=== PATIENT | male | born 1945 | race African-American/Black ===

== ENCOUNTER → 2016-08-06 | Day surgery (SDC) | payer MEDICARE ==
[~2016-08-06] VITALS: Ht 167.6 cm; Wt 91.9 kg
[~2016-08-06] MED LIST: *RESP: ALBUTEROL 2.5 MG/3 ML NEB (PRN) PERIprocedural Use ONLY NEB ONE; ACETAMINOPHEN 1000 MG/100 ML VIAL IV ONE; ALPR0.25 PO; ATOR40TA16 PO; BUPIVACAINE/EPINEPHRINE 0.25% 50 ML VIAL ONE; BUPIVACAINE/EPINEPHRINE 0.5% 50 ML VIAL ONE; CALC0.25 PO; CLOP75TA PO; FEXO180T PO; FLUT1SPR5 EACH NARE; FURO40TA PO; GUAN1TAB PO; HEPARIN SODIUM - IV 10,000 UNITS/10 ML VIAL ONE; HEPARIN SODIUM - SQ 10,000 UNITS/ML VIAL ONE; HYDROmorphone HCL PF 2 MG/ML VIAL ONE; INSULIN HUMAN REGULAR 1,000 UNITS/10 ML VIAL SQ PRN; KEPP10002 PO; LACTATED RINGER'S 1000 ML IV SCH; LISI40TA PO; MEMA1TAB2 PO; METO50TA PO; METOPROLOL TARTRATE 25 MG TAB PO PRN; NIFE30TA61 PO; NIFE60TA58 PO; OXCA150T PO; PRIL20CA9 PO; PROPOFOL 200 MG/20 ML AMP IV ONE; PROTAMINE SULFATE 50 MG/5 ML VIAL ONE; SODIUM CHLORID 0.9% 500 ML IV SCH; TAMS0.4C4 PO; VALP250C PO; ceFAZolin 1,000 MG/NS 100 ML IV SCH; fentaNYL CITRATE 250 MCG/5 ML AMP ONE
[2016-08-06 10:09] LABS: AUTOMATED NEUTROPHIL # 4.9 TH/MM3 (1.8-7.7); BASOPHIL % 0.5 % (0.0-2.0); EOSINOPHIL # 0.2 TH/MM3 (0-0.4); EOSINOPHIL % 2.2 % (0.0-4.0); HEMATOCRIT 33.7 % (39.0-51.0); HEMO FLAGS DIFF FINAL; LYMPH % 22.4 % (9.0-44.0); LYMPHOCYTE # 1.7 TH/MM3 (1.0-4.8); MEAN CORPUSCULAR HEMOGLOBIN 28.7 PG (27.0-34.0); MEAN CORPUSCULAR HGB CONC 33.8 % (32.0-36.0); MONO % 9.2 % (0.0-8.0); NEUT % 65.7 % (16.0-70.0); PLATELET COUNT 205 TH/MM3 (150-450); RED BLOOD COUNT 3.97 MIL/MM3 (4.50-5.90); RED CELL DISTRIBUTION WIDTH 14.6 % (11.6-17.2); WHITE BLOOD COUNT 7.4 TH/MM3 (4.0-11.0)
[2016-08-06 10:18] LABS: APTT (PATIENT) 27.2 SEC (24.3-30.1); PROTHROMBIN TIME - PATIENT 10.6 SEC (9.8-11.6)
[2016-08-06 10:25] VITALS: BP 180/75; PULSE 72; RESP 20; TEMP 98.3; O2SAT 100
[2016-08-06 10:27] LABS: BICARBONATE 26.9 MEQ/L (21.0-32.0); POTASSIUM 3.5 MEQ/L (3.5-5.1)
[2016-08-06 15:31] VITALS: BP 224/78; PULSE 66; RESP 16; TEMP 96.9; O2SAT 100
--- NOTE | 2016-08-07 20:21 | EKG ---
Date Performed: 08/06/2016 Time Performed: 09:40:25 PTAGE: 70 years EKG: Sinus rhythm MARKED LEFT AXIS DEVIATION LEFT VENTRICULAR HYPERTROPHY AND ST-T CHANGE ABNORMAL ECG NO PREVIOUS TRACING DOCTOR: Garett Means Interpretating Date/Time 08/07/2016 20:21:39
--- NOTE | 2016-08-11 18:24 | MP ---
cc: QUIN PERKINS DATE OF SURGERY 08/06/16 PREOPERATIVE DIAGNOSIS Chronic kidney disease - needs permanent hemodialysis access. POSTOPERATIVE DIAGNOSIS Chronic kidney disease - needs permanent hemodialysis access. PROCEDURE Left brachial basilic AV fistula creation. SURGEON Yumi Perkins MD ANESTHESIA Local MAC DESCRIPTION OF PROCEDURE With the patient in the supine position and under IV sedation, the left arm was prepped with Betadine and draped in a sterile fashion. One gram of Ancef was administered intravenously and, following a protocol time-out, the skin and subcutaneous tissue along the medial supra-antecubital region preemptively infiltrated with 0.5% Marcaine with epinephrine. A curvilinear incision was performed along the medial supra-antecubital region. The cephalic vein was found to be sclerotic, occluded throughout, not usable as a fistula conduit. The basilic vein appeared to be of adequate luminal patency in caliber. It was circumferentially mobilized as was the brachial artery and encircled with vessel loops. The vein was ligated distally with 4-0 silk, transected proximal to the ligature, spatulated on end, flushed with heparinized saline and occluded with a Yasargil clip. The brachial artery was occluded proximally and distally with Yasargil clip clips. A vertical 4-mm arteriotomy was performed along the anteromedial surface and the arterial lumen flushed proximally and distally with heparinized saline. An end-to-side anastomosis was performed between the vein and arteriotomy with continuous 7-0 Prolene. The occluding Yasargil clips were removed reestablishing pulsatile flow within the brachial artery as well as into the basilic vein. Strict hemostasis was assured along with normal perfusion within the left hand. The incision was closed with continuous subcutaneous 4-0 Monocryl, continuous subcuticular 5-0 Monocryl, reinforced with Steri-Strips and covered with sterile gauze. Instrument, needle, sponge count correct x2. No operative complications. The patient returned to the recovery room in stable condition having tolerated procedure well. Quin Perkins MD JTS/ /8:52 AM /5:15 PM
== END | disposition home or self-care (01) ==
LOC: HSDC 08:55
PROVIDERS: ATTEND Surgery Vascular Surgery
DX: N18.6 End stage renal disease (principal); I12.0 Hypertensive chronic kidney disease with stage 5 chronic kidney disease or end stage renal disease; E11.22 Type 2 diabetes mellitus with diabetic chronic kidney disease; Z99.2 Dependence on renal dialysis
CPT/HCPCS: 01844; 36819; 80048; 82948; 85025; 85610; 85730; 93005; 94664; J0131; J0690; J1644; J7040; J7613; J1170; J2720; J3010; J7120

== ENCOUNTER 2016-12-18 09:06 | Day surgery (SDC) | payer MEDICARE ==
[~2016-12-18 09:06] MED LIST changes: -*RESP: ALBUTEROL 2.5 MG/3 ML NEB (PRN) PERIprocedural Use ONLY NEB ONE; -ACETAMINOPHEN 1000 MG/100 ML VIAL IV ONE; -BUPIVACAINE/EPINEPHRINE 0.25% 50 ML VIAL ONE; -BUPIVACAINE/EPINEPHRINE 0.5% 50 ML VIAL ONE; -HEPARIN SODIUM - IV 10,000 UNITS/10 ML VIAL ONE; -HEPARIN SODIUM - SQ 10,000 UNITS/ML VIAL ONE; -HYDROmorphone HCL PF 2 MG/ML VIAL ONE; -INSULIN HUMAN REGULAR 1,000 UNITS/10 ML VIAL SQ PRN; -LACTATED RINGER'S 1000 ML IV SCH; -METOPROLOL TARTRATE 25 MG TAB PO PRN; -PROPOFOL 200 MG/20 ML AMP IV ONE; -PROTAMINE SULFATE 50 MG/5 ML VIAL ONE; -SODIUM CHLORID 0.9% 500 ML IV SCH; -ceFAZolin 1,000 MG/NS 100 ML IV SCH; -fentaNYL CITRATE 250 MCG/5 ML AMP ONE
[2016-12-18] MEDS ORDERED: POVIDONE IODINE 5% (ANTISEPSIS KIT) 4 APPLICATIONS EACH NARE SCH (09:30)
[2016-12-18] MEDS ORDERED: MUPIROCIN 2% OINT 1 APPLIC/GM SYR NASAL SCH (09:30)
[2016-12-18] MEDS ORDERED: CHLORHEXIDINE GLUCONATE 2 % 1 PACK (2 CLOTHS) TOPICAL SCH (09:30)
[2016-12-18] MEDS ORDERED: ceFAZolin 2 GM PREMIX 50 ML IV SCH (09:30)
[2016-12-18] MEDS ORDERED: NO Heparin, Lovenox, Coumadin at least 12 hours prior to procedure. PRN (09:30)
[2016-12-18] MEDS ORDERED: OMEP20TA PO (09:52)
[2016-12-18] MEDS ORDERED: ARICEPT PO (09:52)
[2016-12-18] MEDS ORDERED: LACO50 PO (09:52)
[2016-12-18] MEDS ORDERED: LORA-373 PO (09:52)
[2016-12-18] MEDS ORDERED: DEPA500T3 PO (09:52)
[2016-12-18] MEDS ORDERED: CHOL5000 PO (09:52)
[2016-12-18] MEDS ORDERED: HYDR-3801 PO (09:52)
[2016-12-18] MEDS ORDERED: NS 1000 ML IV SCH (10:00)
--- NOTE | 2016-12-18 12:12 | MR ---
cc: ANA MARIA HOOKER MD DATE: 12/18/2016 PROCEDURES PERFORMED Loop recorder insertion. INDICATIONS FOR PROCEDURE CVA DESCRIPTION OF PROCEDURE After informed consent was obtained, the patient was prepped and draped in usual sterile fashion. Using the standard sterile technique a [employer] loop recorder was inserted subcutaneously in the left chest. The patient tolerated the procedure well without any apparent complications. Tachybrady pause and atrial fibrillation detection was enabled. The serial number was [id number]. The initial R-wave was 0.58 mV. MD GARCÍA Lemons/JUSTYN /11:48 AM /7:34 AM
== END 2016-12-18 12:22 | disposition home or self-care (01) ==
LOC: HDIC 09:06 → HDOC 09:06
PROVIDERS: ATTEND Nuclear Medicine Nuclear Cardiology
DX: Z86.73 Personal history of transient ischemic attack (TIA), and cerebral infarction without residual deficits (principal)
CPT/HCPCS: 33282; C1764; J0690; J7030